=== PATIENT | female | born 1960 | race Caucasian/White ===

== ENCOUNTER → 2024-12-09 | Outpatient (CLI) | payer OTHER, SELFPAY ==
--- NOTE | 2024-12-09 09:55 | RAD_ITS ---
PROCEDURE: HAND MIN 3 VIEWS 12/09/2024 REASON FOR EXAM: INFLAMMATORY POLYARTHROPATHY TECHNIQUE: Procedure Code: LETY Modality: DX Procedure: HAND MIN 3 VIEWS Laterality: Right hand COMPARISON: None FINDINGS: Bones: No fracture. Joints: Normal alignment. Mild degenerative changes of the interphalangeal joints. Degenerative changes of the 1st carpometacarpal joint. Soft tissues: Mild soft tissue swelling Other: RAD/Hand Min 3 Views IMPRESSION: DEGENERATIVE OSTEOARTHROSIS. NO ACUTE FINDINGS. Reading Location: [place] [id number]
--- NOTE | 2024-12-09 09:55 | RAD_ITS ---
PROCEDURE: HAND MIN 3 VIEWS 12/09/2024 REASON FOR EXAM: INFLAMMATORY POLYARTHROPATHY TECHNIQUE: Procedure Code: LETY Modality: DX Procedure: HAND MIN 3 VIEWS Laterality: Left hand COMPARISON: None FINDINGS: Bones: Unremarkable Joints: Normal alignment. Mild degenerative changes of the distal and proximal interphalangeal joints. Osteoarthritis of the 1st carpometacarpal joint.. Soft tissues: Mild soft tissue swelling Other: RAD/Hand Min 3 Views IMPRESSION: Degenerative changes of the distal and proximal interphalangeal joints as well as the 1st carpometacarpal joint. Reading Location: [place] [id number]
--- NOTE | 2024-12-09 09:56 | RAD_ITS ---
PROCEDURE: PELVIS 1 OR 2 VIEWS 12/09/2024 REASON FOR EXAM: INFLAMMATORY POLYARTHROPATHY TECHNIQUE: Procedure Code: RADPEL Modality: DX Procedure: PELVIS 1 OR 2 VIEWS COMPARISON: None FINDINGS: Hardware: None Bones: No fracture Joints: Moderate degree of joint space narrowing of both hip joints with marginal spurring in the right femoral head. Degenerative changes of the symphysis pubis. soft tissues: Soft tissues are unremarkable. Calcified phleboliths. Other: Disc space narrowing in the lower lumbar spine. RAD/Pelvis 1 or 2 Views IMPRESSION: Osteoarthritis of both hip joints worse on the right side. Reading Location: [place] [id number]
[2024-12-09 12:40] LABS: Hematocrit 41.8 % (37-47); Hemoglobin 13.8 g/dL (12.0-15.0); Immature Granulocytes Count 0.010 X10^3/uL (0.0-0.0); Mean Corp Hgb Conc 33.0 g/dL (32-36); Mean Corpuscular Volume 90.5 fL (81-99); Mean Platelet Vol. 11.4 fl (6.2-12.0); NRBC Flagged by Analyzer 0 % (0-5); Platelet Count 230 K/mm3 (150-450); RBC Distribution Width CV 13.3 % (11.6-14.6); RBC Distribution Width SD 44.1 fl (35.1-43.9); Red Blood Count 4.62 M/mm3 (4.2-5.4); White Blood Count 6.4 K/mm3 (4.4-11.0)
[2024-12-09 13:07] LABS: Hepatitis B Surface Antigen Nonreactive (Nonreactive); Hepatitis C Antibody Nonreactive (Nonreactive); Vitamin D,25 Hydroxy 21.9 ng/mL (30-100)
[2024-12-09 13:15] LABS: AST(SGOT) 21 U/L (<=31); Alanine Aminotransfer ALT/SGPT 13 U/L (<=34); Albumin, Serum 3.9 g/dL (3.4-4.8); Alkaline Phosphatase 110 U/L (35-104); Anion Gap 13 (5-15); BUN 11 mg/dL (4-19); BUN/Creat Ratio 13.5 RATIO (10-20); Calcium,Total 9.2 mg/dL (7.6-11.0); Carbon Dioxide 22.7 mmol/L (21.0-32.0); Chloride 103 mmol/L (98-108); Globulin 2.8 g/dL (2.2-4.2); Glucose 94 mg/dL (70-99); Potassium 4.0 mmol/L (3.3-5.1)
[2024-12-09 13:20] LABS: CRP 10.50 mg/L (0.0-3.0)
== END | disposition home or self-care (01) ==
LOC: MTLAB 09:54
PROVIDERS: Referring Provider Internal Medicine Rheumatology; Visit Provider Internal Medicine Rheumatology
DX: M06.4 Inflammatory polyarthropathy (principal); M79.7 Fibromyalgia; M25.559 Pain in unspecified hip; M79.641 Pain in right hand; M79.642 Pain in left hand
CPT/HCPCS: 36415; 72170; 73130; 80053; 82306; 85025; 85652; 86140; 86200; 86431; 86706; 86803; 87340